=== PATIENT | female | born 1945 | race Caucasian/White ===

== ENCOUNTER 2017-08-07 21:21 | Emergency (ER) | payer MEDICARE, OTHER ==
[~2017-08-07] VITALS: Ht 160 cm; Wt 78.0 kg
[~2017-08-07 21:21] MED LIST: CELEBREX200 MG PO; CIPROFLOXACIN250 MG PO; COZAAR100 MG PO; CYCLOBENZAPRINE10 MG PO; HYDROCHLOROTHIA25 MG PO; KEFLEX500 MG PO; KLOR-CON 1010 MEQ PO; SERTRALINE HCL50 MG PO; SIMVASTATIN20 MG PO; VERAPAMIL ER P300 MG PO; ZOFRAN ODT4 MG PO
[2017-08-08] MEDS ORDERED: MELOXICAM15 MG PO (00:14)
[2017-08-08] MEDS ORDERED: NORCO 5-325 TA1 EACH PO (00:14)
== END 2017-08-08 00:33 | disposition home or self-care (01) ==
LOC: ED 21:21
DX: M17.11 Unilateral primary osteoarthritis, right knee (principal); I10 Essential (primary) hypertension; Z88.6 Allergy status to analgesic agent; Z79.899 Other long term (current) drug therapy
CPT/HCPCS: 73560; 96372; 99283; J1885

== ENCOUNTER 2021-06-05 10:22 | Emergency (ER) | payer MEDICARE, OTHER ==
[~2021-06-05] VITALS: Ht 160 cm; Wt 80.0 kg
[~2021-06-05 10:22] MED LIST changes: +MELOXICAM15 MG PO; +NORCO 5-325 TA1 EACH PO
[2021-06-05] MEDS ORDERED: VERAPAMIL HCL120 MG PO (10:37)
--- NOTE | 2021-06-06 06:59 | EKG ---
[facility] [address] [place], [place] [address] Signed Sinus bradycardia Left axis deviation Moderate voltage criteria for LVH, may be normal variant ( R in aVL , [place] product ) Abnormal ECG No previous ECGs available Confirmed by FARHAN CABRERA MD ([id number] on 06/06/2021 6:58:53 AM Electronically Signed By: FARHAN CABRERA MD 06/06/21 0659 PATIENT NAME: LORETAISSAC MUJICA Electrocardiogram DATE OF : 41 PHYSICIAN: FARHAN CABRERA MD REPORT #: [id number] REPORT IS CONFIDENTIAL AND NOT TO BE RELEASED WITHOUT AUTHORIZATION
== END 2021-06-05 14:01 | disposition home or self-care (01) ==
LOC: ED 10:22
DX: R07.89 Other chest pain (principal); I10 Essential (primary) hypertension; M19.90 Unspecified osteoarthritis, unspecified site; Z88.6 Allergy status to analgesic agent; Z88.8 Allergy status to other drugs, medicaments and biological substances; Z79.899 Other long term (current) drug therapy
CPT/HCPCS: 36415; 80053; 83735; 84484; 85025; 93005; 93010; 99285-25